=== PATIENT | male | born 1955 | race Caucasian/White ===

== ENCOUNTER 2025-03-30 10:21 | Emergency (ER) | payer BC ==
[~2025-03-30] VITALS: Ht 182.9 cm; Wt 94.0 kg
[2025-03-30 10:24] VITALS: BP 136/78; TEMP 97.6; O2SAT 98
[2025-03-30] MEDS ORDERED: TAMS-18 PO (11:52)
[2025-03-30] MEDS ORDERED: TORS20TA2 PO (12:01)
[2025-03-30] MEDS ORDERED: CARV6.25 PO (12:01)
[2025-03-30] MEDS ORDERED: ATOR1TAB21 PO (12:01)
[2025-03-30] MEDS ORDERED: ASPI81TA26 PO (12:01)
[2025-03-30] MEDS ORDERED: ENTR1TAB PO (12:01)
[2025-03-30] MEDS ORDERED: DUTA1CAP10 PO (12:01)
[2025-03-30] MEDS ORDERED: AMIO200T54 PO (12:01)
[2025-03-30] MEDS ORDERED: RA M500C PO (12:02)
[2025-03-30] MEDS: OXYMETAZOLINE 0.05% NASAL SPRAY ONE (12:08)
[2025-03-30] MEDS ORDERED: HOME MED LIST COMPLETE! XX SCH (13:00)
== END 2025-03-30 13:12 | disposition home or self-care (01) ==
LOC: M ED 10:21
DX: R04.0 Epistaxis (principal); I10 Essential (primary) hypertension; N40.0 Benign prostatic hyperplasia without lower urinary tract symptoms; Z79.1 Long term (current) use of non-steroidal anti-inflammatories (NSAID); Z79.899 Other long term (current) drug therapy